=== PATIENT | male | born 1965 | race African-American/Black ===

== ENCOUNTER 2021-07-27 14:41 | Inpatient (IN) | payer OTHER ==
[2021-07-27 17:59] VITALS: BMI 15.9
[2021-07-27] MEDS ORDERED: MAG HYDROX/AL HYDROX/SIMETH 30 ML UNIT-DOSE CUP PO PRN (20:25)
[2021-07-27] MEDS ORDERED: ACETAMINOPHEN 325 MG TABLET (FP) PO PRN ×2 (20:25)
[2021-07-27] MEDS ORDERED: hydrOXYzine PAMOATE 25 MG CAPSULE (FP) PO PRN (20:25)
[2021-07-27] MEDS ORDERED: BISMUTH SUBSALICYLATE 524 MG/30 ML PO PRN (20:25)
[2021-07-27] MEDS ORDERED: MENTHOL/PHENOL 1 EACH UD MM PRN (20:25)
[2021-07-27] MEDS ORDERED: IBUPROFEN 400 MG TABLET (FP) PO PRN (20:25)
[2021-07-27] MEDS ORDERED: MAGNESIUM HYDROX 2400MG/30ML ORAL SUSPENSION 30 ML CUP PO PRN (20:25)
[2021-07-27] MEDS ORDERED: ONDANSETRON *ODT* 4 MG TABLET SL PRN (20:25)
[2021-07-27] MEDS ORDERED: MAGNESIUM CITRATE 300 ML BOTTLE PO PRN (20:25)
[2021-07-27] MEDS ORDERED: diazePAM 5 MG TABLET PO PRN (20:27)
[2021-07-27] MEDS ORDERED: diazePAM 5 MG TABLET ONE (21:10)
[2021-07-27] MEDS ORDERED: diazePAM 5 MG TABLET PO ONE (21:15)
[2021-07-28] MEDS ORDERED: METHOCARBAMOL 500 MG TABLET ONE (07:34)
[2021-07-28] MEDS: METHOCARBAMOL 500 MG TABLET PO PRN (07:40)
[2021-07-28 08:26] LABS: HEMOGLOBIN 11.6 GM/dL (11.7-16.9); MCH 35.7 pg (25.7-33.7); MCHC 35.1 g/dl (32.0-35.9); MEAN PLT VOLUME 6.1 fl (7.5-11.1); PLATELET COUNT 146 10^3/uL (134-434); RBC 3.24 M/mm3 (4.00-5.60); WHITE BLOOD COUNT 2.4 K/mm3 (4.0-10.0)
[2021-07-28 08:59] LABS: ALBUMIN 3.5 g/dl (3.4-5.0); BLOOD UREA NITROGEN 7.4 mg/dL (7-18); CALCIUM 9.3 mg/dL (8.5-10.1)
[2021-07-28 09:02] LABS: CREATININE 0.8 mg/dL (0.55-1.3)
[2021-07-28 09:03] LABS: BILIRUBIN,TOTAL 1.2 mg/dL (0.2-1); TOT PROT 6.9 g/dl (6.4-8.2)
[2021-07-28] MEDS: diazePAM 5 MG TABLET PO SCH ×5 (10:36→22:32)
[2021-07-28] MEDS: PRENATAL VITAMINS W/ FOLIC ACID TABLET (FP) PO SCH (10:38)
[2021-07-28] MEDS: THIAMINE HCL 100 MG TABLET (FP) PO SCH ×2 (19:58→22:31)
[2021-07-28] MEDS: MELATONIN 5 MG TABLETS PO SCH ×2 (19:58→22:31)
[2021-07-28] MEDS ORDERED: LATANOPROST 0.005% OPHTH SOLN 2.5ML BOTTLE OU SCH ×2 (22:00)
[2021-07-29] MEDS ORDERED: diazePAM 5 MG TABLET PO SCH (06:00)
[2021-07-29] MEDS: METHOCARBAMOL 500 MG TABLET PO PRN (06:10)
[2021-07-29 08:43] VITALS: BP 113/74; PULSE 94; TEMP 98.2
[2021-07-29] MEDS: PRENATAL VITAMINS W/ FOLIC ACID TABLET (FP) PO SCH (11:03)
[2021-07-30] MEDS ORDERED: diazePAM 5 MG TABLET PO SCH (06:00)
[2021-07-31] MEDS ORDERED: diazePAM 5 MG TABLET PO ONE (06:00)
== END 2021-07-29 13:58 | disposition short-term general hospital (02) | DRG 775 ==
LOC: YASAS 14:41 → Y6N 07-28 09:41
PROVIDERS: ADMIT Allergy & Immunology; ATTEND Allergy & Immunology
PROC: HZ2ZZZZ Detoxification Services for Substance Abuse Treatment (ICD-10-PCS; principal; 2021-07-28)
DX: F10.230 Alcohol dependence with withdrawal, uncomplicated (principal); R55 Syncope and collapse; W19.XXXA Unspecified fall, initial encounter; Y92.231 Patient bathroom in hospital as the place of occurrence of the external cause; Z87.891 Personal history of nicotine dependence; Z85.46 Personal history of malignant neoplasm of prostate
CPT/HCPCS: 36415; 80053; 85027; 86780; C9803; U0003; U0005

== ENCOUNTER 2021-07-29 09:04 | Inpatient (IN) | payer BC, OTHER ==
[~2021-07-29 09:04] MED LIST: LORazepam 1 MG TABLET PO SCH
[2021-07-29] MEDS ORDERED: SODIUM CHLORIDE 1,000 ML IV STA (09:43)
[2021-07-29 10:51] LABS: BASO % 0.6 % (0-2.0); EOS % 0.9 % (0-4.5); HEMOGLOBIN 11.5 GM/dL (11.7-16.9); LYMPH % 6.2 % (8-40); MCH 35.9 pg (25.7-33.7); MEAN CELL VOLUME 102.6 fl (80-96); MEAN PLT VOLUME 6.3 fl (7.5-11.1); MONO % 12.6 % (3.8-10.2); NEUT % 79.7 % (42.8-82.8); PLATELET COUNT 144 10^3/uL (134-434); RBC 3.21 M/mm3 (4.00-5.60)
[2021-07-29 11:15] LABS: CHLORIDE 96 mmol/L (98-107); SODIUM 131 mmol/L (136-145)
[2021-07-29 11:18] LABS: ALBUMIN 3.3 g/dl (3.4-5.0); BLOOD UREA NITROGEN 9.3 mg/dL (7-18); CALCIUM 8.8 mg/dL (8.5-10.1); CO2 31 mmol/L (21-32); GLUCOSE,RANDOM 101 mg/dL (74-106); MAGNESIUM 1.9 mg/dL (1.8-2.4)
[2021-07-29 11:22] LABS: CREATININE 0.9 mg/dL (0.55-1.3); SGOT/AST 60 U/L (15-37); SGPT/ALT 28 U/L (13-61)
[2021-07-29 11:23] LABS: BILIRUBIN,TOTAL 0.9 mg/dL (0.2-1); TOT PROT 7.2 g/dl (6.4-8.2)
[2021-07-29 11:25] LABS: ALK PHOS 148 U/L (45-117)
[2021-07-29 11:56] LABS: ANION GAP 5 MMOL/L (8-16)
[2021-07-29 13:54] LABS: CALCIUM 8.5 mg/dL (8.5-10.1)
[2021-07-29 13:55] LABS: BLOOD UREA NITROGEN 8.7 mg/dL (7-18)
[2021-07-29 13:58] LABS: CREATININE 0.7 mg/dL (0.55-1.3)
[2021-07-29] MEDS ORDERED: THIAMINE HCL 200 MG/2 ML VIAL IVPB ONE (16:00)
[2021-07-29] MEDS ORDERED: LORazepam 1 MG TABLET ONE (17:37)
[2021-07-29] MEDS ORDERED: MULTIVITAMINS (DAILY MVI) TABLET (FP) ONE (17:37)
[2021-07-29] MEDS ORDERED: THIAMINE HCL 200 MG/2 ML VIAL ONE (17:37)
[2021-07-29] MEDS ORDERED: FOLIC ACID 1 MG TABLET (FP) ONE (17:38)
[2021-07-29] MEDS: LORazepam 1 MG TABLET PO SCH ×2 (17:47→22:37)
[2021-07-29] MEDS: FOLIC ACID 1 MG TABLET (FP) PO SCH (17:47)
[2021-07-29] MEDS: MULTIVITAMINS (DAILY MVI) TABLET (FP) PO SCH (17:47)
[2021-07-29] MEDS: LATANOPROST 0.005% OPHTH SOLN 2.5ML BOTTLE OU SCH (22:36)
[2021-07-30 00:33] VITALS: BMI 15.7
[2021-07-30] MEDS: LORazepam 0.5 MG TABLET PO SCH ×4 (05:11→22:17)
[2021-07-30 07:57] LABS: HEMATOCRIT 29.5 % (35.4-49); HEMOGLOBIN 10.3 GM/dL (11.7-16.9); MCH 36.1 pg (25.7-33.7); MEAN CELL VOLUME 103.1 fl (80-96); MEAN PLT VOLUME 6.2 fl (7.5-11.1); PLATELET COUNT 143 10^3/uL (134-434); RBC 2.87 M/mm3 (4.00-5.60); RDW 13.9 % (11.9-15.9); WHITE BLOOD COUNT 2.4 K/mm3 (4.0-10.0)
[2021-07-30 08:16] LABS: TRIGLYCERIDES 60 mg/dL (0-150)
[2021-07-30 08:18] LABS: LDL CHOLESTEROL (ONLY SJRH) 33 mg/dL (5-100)
[2021-07-30 08:20] LABS: HDL CHOLESTEROL 122 mg/dL (40-60)
[2021-07-30 08:23] LABS: CHOLESTEROL 179 mg/dL (50-200)
[2021-07-30 08:26] LABS: CALCIUM 8.6 mg/dL (8.5-10.1)
[2021-07-30 08:27] LABS: ALBUMIN 3.2 g/dl (3.4-5.0); BLOOD UREA NITROGEN 7.7 mg/dL (7-18); MAGNESIUM 1.6 mg/dL (1.8-2.4)
[2021-07-30 08:30] LABS: CREATININE 0.8 mg/dL (0.55-1.3)
[2021-07-30 08:31] LABS: BILIRUBIN,TOTAL 0.9 mg/dL (0.2-1); TOT PROT 6.5 g/dl (6.4-8.2)
[2021-07-30] MEDS: FOLIC ACID 1 MG TABLET (FP) PO SCH (09:48)
[2021-07-30] MEDS: MULTIVITAMINS (DAILY MVI) TABLET (FP) PO SCH (09:48)
[2021-07-30] MEDS: ENOXAPARIN NA (PORCINE) 40 MG/0.4 ML DISP.SYRIN SQ SCH (09:48)
[2021-07-30] MEDS ORDERED: SODIUM CHLORIDE 500 ML IV STA (09:59)
[2021-07-30] MEDS ORDERED: MAGNESIUM OXIDE 400 MG TABLET (FP) PO ONE (16:47)
[2021-07-30] MEDS: LATANOPROST 0.005% OPHTH SOLN 2.5ML BOTTLE OU SCH (22:16)
[2021-07-31] MEDS: LORazepam 0.5 MG TABLET PO SCH ×3 (05:45→17:12)
[2021-07-31 07:47] LABS: HEMATOCRIT 28.5 % (35.4-49); HEMOGLOBIN 10.1 GM/dL (11.7-16.9); MCHC 35.4 g/dl (32.0-35.9); MEAN CELL VOLUME 101.9 fl (80-96); PLATELET COUNT 146 10^3/uL (134-434); WHITE BLOOD COUNT 2.8 K/mm3 (4.0-10.0)
[2021-07-31 07:54] LABS: CALCIUM 8.8 mg/dL (8.5-10.1)
[2021-07-31 07:55] LABS: BLOOD UREA NITROGEN 8.5 mg/dL (7-18); MAGNESIUM 1.5 mg/dL (1.8-2.4)
[2021-07-31 07:58] LABS: CREATININE 0.9 mg/dL (0.55-1.3)
[2021-07-31] MEDS: ENOXAPARIN NA (PORCINE) 40 MG/0.4 ML DISP.SYRIN SQ SCH (11:07)
[2021-07-31] MEDS: FOLIC ACID 1 MG TABLET (FP) PO SCH (11:07)
[2021-07-31] MEDS: MULTIVITAMINS (DAILY MVI) TABLET (FP) PO SCH (11:07)
[2021-08-01] MEDS: LORazepam 0.5 MG TABLET PO SCH (00:05)
[2021-08-01] MEDS: MAGNESIUM OXIDE 400 MG TABLET (FP) PO SCH ×2 (00:05→10:26)
[2021-08-01] MEDS: LATANOPROST 0.005% OPHTH SOLN 2.5ML BOTTLE OU SCH (00:06)
[2021-08-01] MEDS ORDERED: guaiFENesin 200 MG/10 ML 10 ML UNIT-DOSE CUPS PO ONE (03:18)
[2021-08-01] MEDS ORDERED: LORazepam 0.5 MG TABLET PO ONE (05:00)
[2021-08-01 07:53] LABS: HEMATOCRIT 28.5 % (35.4-49); MCH 36.4 pg (25.7-33.7); MCHC 35.2 g/dl (32.0-35.9); MEAN CELL VOLUME 103.4 fl (80-96); MEAN PLT VOLUME 6.4 fl (7.5-11.1); PLATELET COUNT 160 10^3/uL (134-434); RBC 2.76 M/mm3 (4.00-5.60); RDW 13.9 % (11.9-15.9); WHITE BLOOD COUNT 3.1 K/mm3 (4.0-10.0)
[2021-08-01 07:59] LABS: BLOOD UREA NITROGEN 13.3 mg/dL (7-18); CALCIUM 9.1 mg/dL (8.5-10.1)
[2021-08-01 08:00] LABS: MAGNESIUM 1.6 mg/dL (1.8-2.4)
[2021-08-01 08:03] LABS: CREATININE 0.9 mg/dL (0.55-1.3)
[2021-08-01 10:03] LABS: ANISOCYTOSIS 1+; MACROCYTOSIS 0; PLATELET ESTIMATE NORMAL
[2021-08-01] MEDS: MULTIVITAMINS (DAILY MVI) TABLET (FP) PO SCH (10:26)
[2021-08-01] MEDS: FOLIC ACID 1 MG TABLET (FP) PO SCH (10:26)
[2021-08-01] MEDS: ENOXAPARIN NA (PORCINE) 40 MG/0.4 ML DISP.SYRIN SQ SCH (10:26)
[2021-08-01 14:56] VITALS: BP 130/70; PULSE 92; TEMP 98
== END 2021-08-01 14:55 | disposition other institution (70) | DRG 312 ==
LOC: JER 09:04 → UNDOADMOB 09:49 → JERBED 09:49 → INTOOBSV 09:49 → JERBED 16:01 → J4W 20:28 → OBSVTOIN 07-31 10:54
PROVIDERS: ADMIT Internal Medicine
DX: I95.1 Orthostatic hypotension (principal); E43 Unspecified severe protein-calorie malnutrition; Z68.1 Body mass index [BMI] 19.9 or less, adult; E87.1 Hypo-osmolality and hyponatremia; E86.0 Dehydration; F10.20 Alcohol dependence, uncomplicated; F11.10 Opioid abuse, uncomplicated; E83.42 Hypomagnesemia; J43.9 Emphysema, unspecified; R91.1 Solitary pulmonary nodule; F39 Unspecified mood [affective] disorder; D72.819 Decreased white blood cell count, unspecified; D53.9 Nutritional anemia, unspecified
CPT/HCPCS: 36415; 70450-TC; 71046-TC-FY; 72125-TC; 80048; 80053; 80061; 82550; 82553; 82607; 82728; 83036; 83540; 83550; 83735; 84100; 84443; 84484; 85025; 85027; 93005; 93010; 97116-GP; 97161-GP; 99285-25; G0378

== ENCOUNTER 2021-08-01 16:27 | Inpatient (IN) | payer OTHER ==
[2021-08-01 17:49] VITALS: BMI 15.5
[2021-08-01] MEDS ORDERED: IBUPROFEN 400 MG TABLET (FP) PO PRN (21:36)
[2021-08-01] MEDS ORDERED: ACETAMINOPHEN 325 MG TABLET (FP) PO PRN (21:36)
[2021-08-01] MEDS ORDERED: LOPERAMIDE HCL 2 MG CAPSULE PO PRN (21:36)
[2021-08-01] MEDS ORDERED: guaiFENesin 200 MG/10 ML 10 ML UNIT-DOSE CUPS PO PRN (21:36)
[2021-08-01] MEDS ORDERED: MAGNESIUM HYDROX 2400MG/30ML ORAL SUSPENSION 30 ML CUP PO PRN (21:36)
[2021-08-01] MEDS ORDERED: MENTHOL/PHENOL 1 EACH UD MM PRN (21:36)
[2021-08-01] MEDS ORDERED: MAGNESIUM CITRATE 300 ML BOTTLE PO PRN (21:36)
[2021-08-01] MEDS ORDERED: MAG HYDROX/AL HYDROX/SIMETH 30 ML UNIT-DOSE CUP PO PRN (21:36)
[2021-08-01] MEDS ORDERED: P-EPHED 60MG/TRIPROLIDI 2.5MG TABLET PO PRN (21:36)
[2021-08-01] MEDS: THIAMINE HCL 100 MG TABLET (FP) PO SCH (22:09)
[2021-08-01] MEDS: MELATONIN 5 MG TABLETS PO SCH (22:09)
[2021-08-01] MEDS: LATANOPROST 0.005% OPHTH SOLN 2.5ML BOTTLE OU SCH (23:40)
[2021-08-02] MEDS: PRENATAL VITAMINS W/ FOLIC ACID TABLET (FP) PO SCH (10:36)
[2021-08-02 14:32] LABS: HIV INTERPRETATION NEGATIVE (NEGATIVE)
[2021-08-02] MEDS: MELATONIN 5 MG TABLETS PO SCH (21:37)
[2021-08-02] MEDS: THIAMINE HCL 100 MG TABLET (FP) PO SCH (21:37)
[2021-08-02] MEDS: LATANOPROST 0.005% OPHTH SOLN 2.5ML BOTTLE OU SCH (21:38)
[2021-08-03] MEDS: PRENATAL VITAMINS W/ FOLIC ACID TABLET (FP) PO SCH (09:53)
[2021-08-03] MEDS ORDERED: MODERNA COVID-19 VACC,MRNA/PF 100 MCG/0.5 ML IM ONE (11:00)
[2021-08-03] MEDS: THIAMINE HCL 100 MG TABLET (FP) PO SCH (21:02)
[2021-08-03] MEDS: MELATONIN 5 MG TABLETS PO SCH (21:02)
[2021-08-03] MEDS: LATANOPROST 0.005% OPHTH SOLN 2.5ML BOTTLE OU SCH (21:03)
[2021-08-04] MEDS: PRENATAL VITAMINS W/ FOLIC ACID TABLET (FP) PO SCH (10:32)
[2021-08-04] MEDS ORDERED: DOCUSATE SODIUM 100 MG CAPSULE (FP) PO PRN (13:56)
[2021-08-04] MEDS: FERROUS SO4 325 MG TABLET (FP) PO SCH (17:57)
[2021-08-04] MEDS: MELATONIN 5 MG TABLETS PO SCH (21:35)
[2021-08-04] MEDS: THIAMINE HCL 100 MG TABLET (FP) PO SCH (21:35)
[2021-08-04] MEDS: LATANOPROST 0.005% OPHTH SOLN 2.5ML BOTTLE OU SCH (21:36)
[2021-08-05] MEDS: FERROUS SO4 325 MG TABLET (FP) PO SCH ×2 (08:35→19:46)
[2021-08-05] MEDS: PRENATAL VITAMINS W/ FOLIC ACID TABLET (FP) PO SCH (09:35)
[2021-08-05] MEDS: LATANOPROST 0.005% OPHTH SOLN 2.5ML BOTTLE OU SCH (21:18)
[2021-08-05] MEDS: MELATONIN 5 MG TABLETS PO SCH (21:18)
[2021-08-05] MEDS: THIAMINE HCL 100 MG TABLET (FP) PO SCH (21:19)
[2021-08-06] MEDS: FERROUS SO4 325 MG TABLET (FP) PO SCH ×2 (08:45→17:16)
[2021-08-06] MEDS: PRENATAL VITAMINS W/ FOLIC ACID TABLET (FP) PO SCH (10:28)
[2021-08-06] MEDS: THIAMINE HCL 100 MG TABLET (FP) PO SCH (21:29)
[2021-08-06] MEDS: MELATONIN 5 MG TABLETS PO SCH (21:29)
[2021-08-06] MEDS: LATANOPROST 0.005% OPHTH SOLN 2.5ML BOTTLE OU SCH (21:31)
[2021-08-07] MEDS: PRENATAL VITAMINS W/ FOLIC ACID TABLET (FP) PO SCH (09:38)
[2021-08-07] MEDS: FERROUS SO4 325 MG TABLET (FP) PO SCH ×2 (09:39→17:25)
[2021-08-07] MEDS: THIAMINE HCL 100 MG TABLET (FP) PO SCH (21:09)
[2021-08-07] MEDS: MELATONIN 5 MG TABLETS PO SCH (21:09)
[2021-08-07] MEDS: LATANOPROST 0.005% OPHTH SOLN 2.5ML BOTTLE OU SCH (21:09)
[2021-08-08] MEDS: FERROUS SO4 325 MG TABLET (FP) PO SCH ×2 (07:08→17:40)
[2021-08-08] MEDS: PRENATAL VITAMINS W/ FOLIC ACID TABLET (FP) PO SCH (10:39)
[2021-08-08] MEDS: LATANOPROST 0.005% OPHTH SOLN 2.5ML BOTTLE OU SCH (21:24)
[2021-08-08] MEDS: MELATONIN 5 MG TABLETS PO SCH (21:24)
[2021-08-08] MEDS: THIAMINE HCL 100 MG TABLET (FP) PO SCH (21:24)
[2021-08-09] MEDS: FERROUS SO4 325 MG TABLET (FP) PO SCH ×2 (07:08→18:30)
[2021-08-09] MEDS: PRENATAL VITAMINS W/ FOLIC ACID TABLET (FP) PO SCH (09:54)
[2021-08-09] MEDS: THIAMINE HCL 100 MG TABLET (FP) PO SCH (21:07)
[2021-08-09] MEDS: MELATONIN 5 MG TABLETS PO SCH (21:07)
[2021-08-09] MEDS: LATANOPROST 0.005% OPHTH SOLN 2.5ML BOTTLE OU SCH (21:07)
[2021-08-10] MEDS: FERROUS SO4 325 MG TABLET (FP) PO SCH ×2 (07:18→18:35)
[2021-08-10] MEDS: PRENATAL VITAMINS W/ FOLIC ACID TABLET (FP) PO SCH (10:13)
[2021-08-10] MEDS: MELATONIN 5 MG TABLETS PO SCH (21:21)
[2021-08-10] MEDS: THIAMINE HCL 100 MG TABLET (FP) PO SCH (21:21)
[2021-08-10] MEDS: LATANOPROST 0.005% OPHTH SOLN 2.5ML BOTTLE OU SCH (21:31)
[2021-08-11 06:49] VITALS: BP 136/87; PULSE 93; TEMP 98.2
[2021-08-11] MEDS: FERROUS SO4 325 MG TABLET (FP) PO SCH (07:15)
[2021-08-11] MEDS: PRENATAL VITAMINS W/ FOLIC ACID TABLET (FP) PO SCH (09:44)
== END 2021-08-11 09:45 | disposition home or self-care (01) | DRG 772 ==
LOC: YASAS 16:27 → Y3W 18:14
PROVIDERS: ADMIT Allergy & Immunology; ATTEND Allergy & Immunology
PROC: HZ42ZZZ Group Counseling for Substance Abuse Treatment, Cognitive-Behavioral (ICD-10-PCS; principal; 2021-08-01)
DX: F16.20 Hallucinogen dependence, uncomplicated (principal); Z85.46 Personal history of malignant neoplasm of prostate; Z87.891 Personal history of nicotine dependence
CPT/HCPCS: 0011A; 36415; 87389; 91301; C9803; U0003; U0005